=== PATIENT | female | born 1990 | race Caucasian/White ===

== ENCOUNTER 2016-03-27 14:35 | Emergency (ER) | payer BC, OTHER ==
[~2016-03-27] VITALS: Ht 160 cm; Wt 135.0 kg
[~2016-03-27 14:35] MED LIST: AMOX500T PO; GLUCTAB PO; YAZ PO; ZINCLOZ2 PO
--- NOTE | 2016-03-27 15:05 | PD ---
HPI Chief Complaint: Chest Pain Time Seen by Provider: 15:04 Travel History International Travel<30 days: No Contact w/Intl Traveler<30days: No Traveled to known affect area: No History of Present Illness HPI 26-year-old female came to the emergency room with history of pleuritic chest pain on the left side that was sharp in nature. Pain gets worse when she takes a deep breath. It has been going on since yesterday. No history of fever or chills. No history of shortness of breath. No history of cough. No history of recent long distance travel or any surgeries or procedures. Patient does not have history of PE or DVT. No family history of PE or DVT. Vital signs were stable. Patient is not a smoker. [facility] Past Medical History Narrative Medical List of her past medical history as reviewed from the nursing note. Diabetes: Yes (metformin) ?: Not Family History Family Myocardial Infarction: No Social History Tobacco Use: No Allergies-Medications (Allergen,Severity, Reaction): Coded Allergies: No Known Allergies (Verified , 04/28/11) Comments No known drug allergies. Reported Meds & Prescriptions Reported Meds & Active Scripts Active Macrobid (Nitrofurantoin Monoh/Nitrofur Macro) 100 Mg Cap 100 Mg PO BID 7 Days Reported Metformin (Metformin HCl) 500 Mg Tab 500 Mg PO BIDPC With meals Narrative Medication List of her home medications reviewed from the nursing note. Review of Systems Except as stated in HPI: all other systems reviewed are Neg Physical Exam Narrative GENERAL: Awake, alert, obese, anxious, mild distress SKIN: Warm and dry. HEAD: Atraumatic. Normocephalic. EYES: Pupils equal and round. No scleral icterus. No injection or drainage. ENT: No nasal bleeding or discharge. Mucous membranes pink and moist. NECK: Trachea midline. No JVD. CARDIOVASCULAR: Regular rate and rhythm. No murmur appreciated. RESPIRATORY: No accessory muscle use. Clear to auscultation. Breath sounds equal bilaterally. GASTROINTESTINAL: Abdomen soft, non-tender, nondistended. Hepatic and splenic margins not palpable. MUSCULOSKELETAL: No obvious deformities. No clubbing. No cyanosis. No edema. NEUROLOGICAL: Awake and alert. No obvious cranial nerve deficits. Motor grossly within normal limits. Normal speech. PSYCHIATRIC: Appropriate mood and affect; insight and judgment normal. Data Data Last Documented VS Vital Signs Date Time Temp Pulse Resp B/P Pulse Ox O2 Delivery O2 Flow Rate FiO2 03/27/16 15:57 80 18 Room Air 03/27/16 15:45 98 Orders Complete Blood Count With Diff (03/27/16 15:09) Basic Metabolic Panel (Bmp) (03/27/16 15:09) D-Dimer (03/27/16 15:09) Troponin I (03/27/16 15:09) Urinalysis - C+S If Indicated (03/27/16 15:09) Iv Access Insert/Monitor (03/27/16 15:09) Electrocardiogram (03/27/16 15:09) Ecg Monitoring (03/27/16 15:09) Oximetry (03/27/16 15:09) Oxygen Administration (03/27/16 15:09) Chest, Single Ap (03/27/16 15:09) Sodium Chloride 0.9% Flush (Ns Flush) (03/27/16 15:15) Ed Urine Pregnancytest Poc (03/27/16 15:09) Acetamin-Hydrocod 325-5 Mg (David 5-325 (03/27/16 15:15) Urine Culture (03/27/16 15:45) Nitrofurantoin Monohyd Macrocr (Macrobid (03/27/16 16:45) Labs Laboratory Tests Test 03/27/16 15:45 D-Dimer Quantitative (PE/DVT) 0.27 MG/L FEU Sodium Level 139 MEQ/L Potassium Level 3.8 MEQ/L Chloride Level 104 MEQ/L Carbon Dioxide Level 29.9 MEQ/L Anion Gap 5 MEQ/L Blood Urea Nitrogen 10 MG/DL Creatinine 0.97 MG/DL Estimat Glomerular Filtration 69 ML/MIN Rate Random Glucose 93 MG/DL Calcium Level 9.2 MG/DL Troponin I LESS THAN 0.02 NG/ML White Blood Count 9.7 TH/MM3 Red Blood Count 4.80 MIL/MM3 Hemoglobin 12.8 GM/DL Hematocrit 37.9 % Mean Corpuscular Volume 78.9 FL Mean Corpuscular Hemoglobin 26.7 PG Mean Corpuscular Hemoglobin 33.8 % Concent Red Cell Distribution Width 15.0 % Platelet Count 289 TH/MM3 Mean Platelet Volume 8.7 FL Neutrophils (%) (Auto) 67.7 % Lymphocytes (%) (Auto) 21.6 % Monocytes (%) (Auto) 7.1 % Eosinophils (%) (Auto) 2.8 % Basophils (%) (Auto) 0.8 % Neutrophils # (Auto) 6.5 TH/MM3 Lymphocytes # (Auto) 2.1 TH/MM3 Monocytes # (Auto) 0.7 TH/MM3 Eosinophils # (Auto) 0.3 TH/MM3 Basophils # (Auto) 0.1 TH/MM3 CBC Comment DIFF FINAL Differential Comment Urine Color YELLOW Urine Turbidity HAZY Urine pH 5.5 Urine Specific [place] 1.021 Urine Protein TRACE mg/dL Urine Glucose (UA) NEG mg/dL Urine Ketones NEG mg/dL Urine Occult Blood LARGE Urine Nitrite POS Urine Bilirubin NEG Urine Urobilinogen LESS THAN 2.0 MG/DL Urine Leukocyte Esterase TRACE Urine RBC LESS THAN 1 /hpf Urine WBC 3 /hpf Urine Squamous Epithelial 25 /hpf Cells Urine Bacteria OCC /hpf Urine Mucus FEW /lpf Microscopic Urinalysis Comment CULTURE INDICATED MDM Medical Decision Making Medical Screen Exam Complete: Yes Emergency Medical Condition: Yes Medical Record Reviewed: Yes Interpretation(s) Twelve-lead EKG was reviewed by me. Normal sinus rhythm, normal axis, nonspecific ST-T wave changes. Heart rate of 89 bpm. Differential Diagnosis ACS, PE, nonspecific chest pain Narrative Course 4:50 PM blood test results of back and within normal limits. D-dimer is within normal limit. Patient has almost no risk factor for coronary artery disease and I am willing to stop the pursuit for acute coronary syndrome at this point. She does have a UTI and I have given her 1 Macrobid pill and a prescription to go home with. I discussed all this with the patient and she is comfortable going home as well. Procedures EKG Prior to Arrival: No Diagnosis Primary Impression: Nonspecific chest pain Additional Impression: UTI (urinary tract infection) Qualified Code: N39.0 - Urinary tract infection without hematuria, site unspecified Referrals: Primary Care Physician 3 days Additional Instructions: Please return to the ER if the condition worsens or any other new concerns. Otherwise follow-up with your primary care in couple days. Take the medication as per the prescription direction. Take Tylenol or Motrin for any future chest pain. Med/Other Pt SpecificInfo: Prescription(s) given Scripts Nitrofurantoin Monohydrate Macrocrystals (Macrobid)100 Mg [id number] Mg PO BID 7 Days Ref 0 Prov:Kaitlin Moon MD 03/27/16 Disposition: 01 DISCHARGE HOME Condition: Stable Kaitlin Moon MD Mar 27, 2016 15:05
[2016-03-27] MEDS ORDERED: ACETAMINOPHEN/HYDROcodone 325 MG/5 MG TAB PO ONE (15:15)
[2016-03-27] MEDS ORDERED: SODIUM CHLORIDE 0.9% FLUSH 5 ML FLUSH IVF PRN (15:15)
[2016-03-27 15:45] VITALS: O2SAT 98
--- NOTE | 2016-03-27 15:59 | RADRPT ---
EXAM DATE/TIME: 03/27/2016 15:23 [facility] COMPARISON: No previous studies available for comparison. INDICATIONS : Pain and shortness of breath. MEDICAL HISTORY : None. SURGICAL HISTORY : None. ENCOUNTER: Initial ACUITY: 3 days PAIN SCORE: 4/10 LOCATION: Left chest FINDINGS: A single view of the chest demonstrates the lungs to be symmetrically aerated without evidence of mas s, infiltrate or effusion. The cardiomediastinal contours are unremarkable. Osseous structures are intact. CONCLUSION: The lungs are clear. Dylon Witt MD on March 27, 2016 at 15:57 Board Certified Radiologist. This report was verified electronically.
[2016-03-27 16:00] LABS: AUTOMATED NEUTROPHIL # 6.5 TH/MM3 (1.8-7.7); BASOPHIL # 0.1 TH/MM3 (0-0.2); BASOPHIL % 0.8 % (0.0-2.0); EOSINOPHIL # 0.3 TH/MM3 (0-0.4); EOSINOPHIL % 2.8 % (0.0-4.0); HEMATOCRIT 37.9 % (35.0-46.0); HEMO FLAGS DIFF FINAL; LYMPH % 21.6 % (9.0-44.0); LYMPHOCYTE # 2.1 TH/MM3 (1.0-4.8); MEAN CELL VOLUME 78.9 FL (80.0-100.0); MEAN CORPUSCULAR HEMOGLOBIN 26.7 PG (27.0-34.0); MEAN CORPUSCULAR HGB CONC 33.8 % (32.0-36.0); MONO % 7.1 % (0.0-8.0); NEUT % 67.7 % (16.0-70.0); PLATELET COUNT 289 TH/MM3 (150-450); WHITE BLOOD COUNT 9.7 TH/MM3 (4.0-11.0)
[2016-03-27] MEDS ORDERED: METF500T PO (16:00)
[2016-03-27 16:19] LABS: BACTERIA, URINE OCC /hpf; BLOOD, URINE LARGE (NEG); COMMENT (UR) CULTURE INDICATED; CULTURE IF INDICATED CULTURE INDICATED; GLUCOSE,URINE NEG (NEG); KETONE, URINE NEG (NEG); MUCUS URINE FEW /lpf (OCC); PH, URINE 5.5 (5.0-8.5); SQUAMOUS EPITHELIAL CELL URINE 25 /hpf (0-5); URINE COLOR YELLOW (YELLW/STRAW)
[2016-03-27 16:20] LABS: NITRITE,URINE POS (NEG)
[2016-03-27 16:28] LABS: ANION GAP 5 MEQ/L (5-15); BICARBONATE 29.9 MEQ/L (21.0-32.0); BLOOD UREA NITROGEN 10 MG/DL (7-18); CHLORIDE 104 MEQ/L (98-107); GLOMERULAR FILTRATION RATE 69 ML/MIN (>89); POTASSIUM 3.8 MEQ/L (3.5-5.1); SODIUM (NA) 139 MEQ/L (136-145)
[2016-03-27] MEDS ORDERED: NITROFURANTOIN MONOHYD MACROCR 100 MG CAP PO ONE (16:45)
[2016-03-27] MEDS ORDERED: MACR100C2 PO (16:52)
--- NOTE | 2016-03-27 17:52 | EKG ---
Date Performed: 03/27/2016 Time Performed: 15:35:01 PTAGE: 26 years EKG: Sinus rhythm NORMAL ECG NO PREVIOUS TRACING DOCTOR: Seth Mcdaniel Interpretating Date/Time 03/27/2016 17:51:39
== END 2016-03-27 17:11 | disposition home or self-care (01) ==
LOC: NEPC 14:35
DX: R07.9 Chest pain, unspecified (principal); N39.0 Urinary tract infection, site not specified; B96.20 Unspecified Escherichia coli [E. coli] as the cause of diseases classified elsewhere; E11.9 Type 2 diabetes mellitus without complications; Z79.84 Long term (current) use of oral hypoglycemic drugs
CPT/HCPCS: 71010; 80048; 81001; 84484; 84703; 85025; 85379; 87077; 87086; 87186; 93005